=== PATIENT | female | born 1975 | race Caucasian/White ===

== ENCOUNTER 2016-11-18 08:40 | Emergency (ER) | payer OTHER ==
[~2016-11-18] VITALS: Ht 165.1 cm; Wt 108.4 kg
[~2016-11-18 08:40] MED LIST: CEPH500C PO; NEOM0.1S10 LEFTEYE; TRAM50TA2 PO
[2016-11-18 09:09] VITALS: BP 156/95
[2016-11-18] MEDS ORDERED: ALBUTEROL SULF 2.5 MG/0.5ML(0.5%) NEB SOLN NEB ONE (09:30)
[2016-11-18] MEDS ORDERED: IPRATROPIUM BROM 0.5 MG/2.5ML INH SOL NEB ONE (09:30)
== END 2016-11-18 10:30 | disposition home or self-care (01) ==
LOC: ER 08:46
DX: J20.9 Acute bronchitis, unspecified (principal); R06.2 Wheezing
CPT/HCPCS: 94640

== ENCOUNTER 2020-05-21 13:36 | Emergency (ER) | payer BC, OTHER ==
[~2020-05-21] VITALS: Ht 165.1 cm; Wt 100.7 kg
[2020-05-21 15:15] VITALS: BP 138/87
== END 2020-05-21 15:18 | disposition home or self-care (01) ==
LOC: ER 13:36
DX: U07.1 COVID-19 (principal); J18.9 Pneumonia, unspecified organism; E11.9 Type 2 diabetes mellitus without complications; Z90.710 Acquired absence of both cervix and uterus
CPT/HCPCS: 71045

== ENCOUNTER 2021-03-18 00:30 | Emergency (ER) | payer BC ==
[~2021-03-18] VITALS: Ht 165.1 cm; Wt 108.0 kg
[2021-03-18 02:36] VITALS: BP 151/61
[2021-03-18] MEDS ORDERED: KETOROLAC TROMETH 60MG/2ML VIAL IM ONE (04:00)
== END 2021-03-18 04:29 | disposition home or self-care (01) ==
LOC: ER 00:31
DX: G56.01 Carpal tunnel syndrome, right upper limb (principal); R20.0 Anesthesia of skin; E66.9 Obesity, unspecified; E11.9 Type 2 diabetes mellitus without complications; Z68.39 Body mass index [BMI] 39.0-39.9, adult; Z90.710 Acquired absence of both cervix and uterus
CPT/HCPCS: 96372; 99283; J1885

== ENCOUNTER 2021-08-02 18:05 | Emergency (ER) | payer BC ==
[~2021-08-02] VITALS: Ht 165.1 cm; Wt 111.1 kg
[2021-08-02] MEDS ORDERED: METH500T22 PO (19:02)
[2021-08-02] MEDS ORDERED: IBUP800T27 PO (19:02)
[2021-08-02] MEDS ORDERED: KETOROLAC TROMETH 30 MG/ML 1ML VIAL IM ONE (19:15)
[2021-08-02 19:29] VITALS: BP 149/102
== END 2021-08-02 19:38 | disposition home or self-care (01) ==
LOC: ER 18:05
DX: S13.4XXA Sprain of ligaments of cervical spine, initial encounter (principal); E11.9 Type 2 diabetes mellitus without complications; Z90.710 Acquired absence of both cervix and uterus; V43.52XA Car driver injured in collision with other type car in traffic accident, initial encounter; Y93.89 Activity, other specified; Y92.89 Other specified places as the place of occurrence of the external cause; Y99.8 Other external cause status
CPT/HCPCS: 96372; 99283; J1885

== ENCOUNTER 2021-08-10 12:33 | Emergency (ER) | payer BC, OTHER ==
[~2021-08-10] VITALS: Ht 165.1 cm; Wt 111.1 kg
[~2021-08-10 12:33] MED LIST changes: +IBUP800T27 PO; +METH500T22 PO
[2021-08-10] MEDS ORDERED: cefTRIAXone SOD 1,000 MG VL IM ONE (13:45)
[2021-08-10 13:50] VITALS: BP 158/91
[2021-08-10] MEDS ORDERED: cloNIDine HCL 0.1 MG TAB PO ONE (14:00)
[2021-08-10] MEDS ORDERED: CEPH-509 PO (14:06)
[2021-08-10] MEDS ORDERED: TRIA37.56 PO (14:06)
== END 2021-08-10 14:17 | disposition home or self-care (01) ==
LOC: ER 12:33
DX: L04.0 Acute lymphadenitis of face, head and neck (principal); E11.9 Type 2 diabetes mellitus without complications; I10 Essential (primary) hypertension; F17.210 Nicotine dependence, cigarettes, uncomplicated; Z90.89 Acquired absence of other organs; Z90.710 Acquired absence of both cervix and uterus; Z91.040 Latex allergy status
CPT/HCPCS: 96372; 99283; J0696

== ENCOUNTER 2021-10-20 07:28 | Emergency (ER) | payer BC ==
[~2021-10-20] VITALS: Ht 165.1 cm; Wt 111.1 kg
[~2021-10-20 07:28] MED LIST changes: +CEPH-509 PO; +TRIA37.56 PO
[2021-10-20 09:43] LABS: Basophils # (auto) 0 10 ^3/uL (0-0.2); Basophils % (auto) 0.6 % (0.0-2.0); Eosinophils # (auto) 0.1 10 ^3/uL (0-0.8); Eosinophils % (auto) 1.1 % (0.0-7.0); Hematocrit 43.1 % (36.0-46.0); Hemoglobin 15.4 g/dL (12.2-16.2); Lymphocytes % (auto) 25.6 % (10.0-50.0); Mean Corpuscular Hemoglobin 32.9 pg (28.0-32.0); Mean Corpuscular Hgb Conc. 35.8 g/dL (32.0-36.0); Mean Corpuscular Volume 91.9 fL (80.0-100.0); Monocytes # (auto) 0.4 10 ^3/uL (0-1.3); Monocytes % (auto) 4.6 % (0.0-12.0); Neutrophils # (auto) 5.4 10 ^3/uL (1.6-8.6); Neutrophils % (auto) 68.1 % (37.0-80.0); Red Blood Cells 4.69 10^6/uL (4.0-5.20); Red Cell Distribution Width 12.6 % (11.8-14.3); White Blood Cell 7.9 10^3/uL (4.4-10.8)
[2021-10-20 10:01] LABS: Albumin 3.8 g/dL (3.4-5.0); Calcium 9.2 mg/dL (8.5-10.1); Potassium 4.4 mmol/L (3.5-5.1)
[2021-10-20 10:04] LABS: BUN/Creatinine Ratio 12.9; Bilirubin, Total 0.6 mg/dL (0.2-1.0); Total Protein 7.1 g/dL (6.4-8.2)
[2021-10-20] MEDS ORDERED: cloNIDine HCL 0.1 MG TAB PO ONE (13:00)
[2021-10-20 13:25] LABS: Urine Blood Normal /uL (Negative); Urine Specific Gravity 1.003 (1.001-1.035)
[2021-10-20 13:30] LABS: Urine WBC 0 - 2 /hpf (0 - 5)
[2021-10-20 13:31] LABS: Urine Bacteria FEW /hpf (None Seen)
[2021-10-20 15:02] VITALS: BP 116/77
== END 2021-10-20 15:10 | disposition home or self-care (01) ==
LOC: ER 07:28
DX: R07.89 Other chest pain (principal); I16.0 Hypertensive urgency; E11.9 Type 2 diabetes mellitus without complications; F17.210 Nicotine dependence, cigarettes, uncomplicated; F12.10 Cannabis abuse, uncomplicated; Z90.710 Acquired absence of both cervix and uterus; Z90.89 Acquired absence of other organs; Z88.0 Allergy status to penicillin; Z91.040 Latex allergy status
CPT/HCPCS: 36415; 80053; 81001; 84484; 85025; 93005

== ENCOUNTER 2022-06-20 13:32 | Emergency (ER) | payer BC ==
[~2022-06-20] VITALS: Ht 165.1 cm; Wt 107.0 kg
[2022-06-20 14:09] VITALS: BP 164/111
[2022-06-20] MEDS ORDERED: AMOX-277 PO (14:26)
[2022-06-20] MEDS ORDERED: PROM1SOL4 PO (14:26)
[2022-06-21] MEDS ORDERED: BENZ100C19 PO (10:06)
[2022-06-21] MEDS ORDERED: AZIT500T66 PO (10:06)
== END 2022-06-20 14:34 | disposition home or self-care (01) ==
LOC: ER 13:32
DX: J20.9 Acute bronchitis, unspecified (principal); H66.93 Otitis media, unspecified, bilateral; F41.9 Anxiety disorder, unspecified; I10 Essential (primary) hypertension; F17.210 Nicotine dependence, cigarettes, uncomplicated; F12.90 Cannabis use, unspecified, uncomplicated; F15.90 Other stimulant use, unspecified, uncomplicated; Z90.710 Acquired absence of both cervix and uterus; Z90.89 Acquired absence of other organs
CPT/HCPCS: 71046

== ENCOUNTER 2023-01-27 17:41 | Emergency (ER) | payer BC ==
[~2023-01-27] VITALS: Ht 165.1 cm; Wt 97.0 kg
[~2023-01-27 17:41] MED LIST changes: +AZIT500T66 PO; +BENZ100C19 PO; +IBUP-1456 PO; -IBUP800T27 PO; +METH-1181 PO; -METH500T22 PO; -TRIA37.56 PO; +TRIA37.587 PO
[2023-01-27 19:08] LABS: Urine Bacteria NONE SEEN /hpf (None Seen); Urine Blood Negative /uL (Negative); Urine Clarity Clear (Clear); Urine Color Colorless (Yellow); Urine Protein, UAD Negative (Negative); Urine Specific Gravity 1.002 (1.001-1.035); Urine Urobilinogen Normal (Negative); Urine WBC <1 /hpf (0 - 5)
[2023-01-27] MEDS ORDERED: PERCOT PO (21:11)
[2023-01-27] MEDS ORDERED: DOCU-94 PO (21:11)
[2023-01-27] MEDS ORDERED: DexAMETHasone SOD PHOS 10MG/1ML VIAL INJ IM ONE (21:15)
[2023-01-27] MEDS ORDERED: KETOROLAC TROMETH 60MG/2ML VIAL IM ONE (21:15)
[2023-01-27] MEDS ORDERED: MORPHINE SULFATE INJ 2 MG/ml SYRG IM ONE (21:15)
[2023-01-28 02:12] VITALS: BP 142/103; PULSE 67; RESP 18; TEMP 97.4; O2SAT 96
== END 2023-01-27 21:51 | disposition home or self-care (01) ==
LOC: ER 17:41
DX: M62.830 Muscle spasm of back (principal); F41.9 Anxiety disorder, unspecified; I10 Essential (primary) hypertension; F17.210 Nicotine dependence, cigarettes, uncomplicated; F15.90 Other stimulant use, unspecified, uncomplicated; Z90.710 Acquired absence of both cervix and uterus; Z90.89 Acquired absence of other organs; Z98.890 Other specified postprocedural states; Z88.0 Allergy status to penicillin; Z91.040 Latex allergy status; Z79.1 Long term (current) use of non-steroidal anti-inflammatories (NSAID); Z79.899 Other long term (current) drug therapy
CPT/HCPCS: 72131; 81001; 82962; 96372; 99285; J1100; J2270; J1885

== ENCOUNTER 2023-05-28 12:48 | Emergency (ER) | payer BC ==
[~2023-05-28] VITALS: Ht 165.1 cm; Wt 100.4 kg
[~2023-05-28 12:48] MED LIST changes: +DOCU-94 PO; +PERCOT PO
[2023-05-28 13:14] VITALS: PULSE 82; RESP 16; O2SAT 96
[2023-05-28] MEDS ORDERED: FLUORESCEIN SOD OPTH TEST STRIP OP ONE (15:00)
[2023-05-28] MEDS ORDERED: TETRACAINE HCL 0.5% OPTH(EYE) SOLN 4ML EACHEYE ONE (15:00)
[2023-05-28] MEDS ORDERED: IBUP-1456 PO (15:34)
[2023-05-28] MEDS ORDERED: CIPR0.3S67 OP (15:34)
[2023-05-28] MEDS ORDERED: SILV1CRE82 TOP (15:34)
== END 2023-05-28 15:45 | disposition home or self-care (01) ==
LOC: ER 12:48
DX: S05.02XA Injury of conjunctiva and corneal abrasion without foreign body, left eye, initial encounter (principal); S05.01XA Injury of conjunctiva and corneal abrasion without foreign body, right eye, initial encounter; T20.16XA Burn of first degree of forehead and cheek, initial encounter; I10 Essential (primary) hypertension; E03.9 Hypothyroidism, unspecified; F17.210 Nicotine dependence, cigarettes, uncomplicated; Z90.89 Acquired absence of other organs; Z90.710 Acquired absence of both cervix and uterus; Z79.1 Long term (current) use of non-steroidal anti-inflammatories (NSAID); Z79.2 Long term (current) use of antibiotics; Z79.899 Other long term (current) drug therapy; Z88.0 Allergy status to penicillin; Z91.040 Latex allergy status; X58.XXXA Exposure to other specified factors, initial encounter; Y93.89 Activity, other specified; Y92.89 Other specified places as the place of occurrence of the external cause; Y99.8 Other external cause status

== ENCOUNTER 2024-02-09 13:44 | Emergency (ER) | payer SELFPAY ==
[~2024-02-09] VITALS: Ht 165.1 cm; Wt 100.0 kg
[~2024-02-09 13:44] MED LIST changes: +CIPR0.3S67 OP; +SILV1CRE82 TOP
[2024-02-09 14:06] VITALS: BP 158/94; PULSE 83; RESP 18; O2SAT 96
[2024-02-09] MEDS ORDERED: HYDROcodone-ACET 5/325MG TAB PO ONE (19:00)
== END 2024-02-09 14:46 | disposition left against medical advice (07) ==
LOC: ER 13:44
DX: F41.9 Anxiety disorder, unspecified (principal); I10 Essential (primary) hypertension; E03.9 Hypothyroidism, unspecified; F17.210 Nicotine dependence, cigarettes, uncomplicated; F12.90 Cannabis use, unspecified, uncomplicated; F15.90 Other stimulant use, unspecified, uncomplicated; Z98.890 Other specified postprocedural states; Z90.710 Acquired absence of both cervix and uterus; Z88.0 Allergy status to penicillin; Z79.1 Long term (current) use of non-steroidal anti-inflammatories (NSAID); Z79.899 Other long term (current) drug therapy; Z91.040 Latex allergy status
CPT/HCPCS: 82962; 99291

== ENCOUNTER 2024-02-11 12:38 | Emergency (ER) | payer SELFPAY ==
[~2024-02-11] VITALS: Ht 165.1 cm; Wt 103.8 kg
[2024-02-11 14:46] LABS: Basophils # (auto) 0 10 ^3/uL (0-0.2); Basophils % (auto) 0.5 % (0.0-2.0); Eosinophils # (auto) 0 10 ^3/uL (0-0.8); Eosinophils % (auto) 0.7 % (0.0-7.0); Hematocrit 45.3 % (36.0-46.0); Hemoglobin 15.8 g/dL (12.2-16.2); Lymphocytes # (auto) 2.8 10 ^3/uL (0.4-5.4); Lymphocytes % (auto) 40.2 % (10.0-50.0); Mean Corpuscular Volume 88.5 fL (80.0-100.0); Monocytes # (auto) 0.4 10 ^3/uL (0-1.3); Monocytes % (auto) 5.2 % (0.0-12.0); Neutrophils # (auto) 3.7 10 ^3/uL (1.6-8.6); Neutrophils % (auto) 53.4 % (37.0-80.0); Nucleated Red Blood Cells % 0.1 %; Platelet Count (auto) 272 10^3/uL (140-450); Red Blood Cells 5.12 10^6/uL (4.0-5.20); Red Cell Distribution Width 12.7 % (11.8-14.3); White Blood Cell 6.9 10^3/uL (4.4-10.8)
[2024-02-11 15:05] LABS: Chloride 104 mmol/L (98-107); Potassium 3.7 mmol/L (3.5-5.1); Sodium 137 mmol/L (136-145)
[2024-02-11 15:06] LABS: Anion Gap 6 (5-15); Carbon Dioxide 27 mmol/L (20-30)
[2024-02-11 15:07] LABS: Calcium 9.9 mg/dL (8.7-10.4)
[2024-02-11 15:11] LABS: BUN/Creatinine Ratio 14.9 (10.0-20.0); Blood Urea Nitrogen 10 mg/dL (9-23); Glucose 162 mg/dL (74-106)
[2024-02-11 16:41] LABS: Rapid Strep A Screen-Throat Negative
[2024-02-11] MEDS ORDERED: AUG875T PO (16:47)
[2024-02-11 17:36] VITALS: BP 138/80; PULSE 78; RESP 18; TEMP 98.4; O2SAT 96
== END 2024-02-11 17:37 | disposition home or self-care (01) ==
LOC: ER 12:38
DX: J02.9 Acute pharyngitis, unspecified (principal); E05.90 Thyrotoxicosis, unspecified without thyrotoxic crisis or storm; I10 Essential (primary) hypertension; F12.90 Cannabis use, unspecified, uncomplicated; F15.90 Other stimulant use, unspecified, uncomplicated; F17.210 Nicotine dependence, cigarettes, uncomplicated; Z88.0 Allergy status to penicillin; Z79.899 Other long term (current) drug therapy; Z79.1 Long term (current) use of non-steroidal anti-inflammatories (NSAID); Z91.040 Latex allergy status; Z90.710 Acquired absence of both cervix and uterus; Z98.890 Other specified postprocedural states
CPT/HCPCS: 36415; 80048; 82962; 84443; 85025; 87070; 87880